=== PATIENT | female | born 1975 | race Caucasian/White ===

== ENCOUNTER → 2018-03-25 | Outpatient (CLI) | payer BC | LOC: COL.RAD 10:26 | DX: M48.02 Spinal stenosis, cervical region (principal); M50.123 Cervical disc disorder at C6-C7 level with radiculopathy; G25.81 Restless legs syndrome; G43.109 Migraine with aura, not intractable, without status migrainosus; G95.89 Other specified diseases of spinal cord; E61.1 Iron deficiency | CPT/HCPCS: A9585 ==